=== PATIENT | male | born 2000 | race Caucasian/White ===

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

== ENCOUNTER 2024-01-29 15:37 | Emergency (ER) | payer BC ==
[~2024-01-29] VITALS: Ht 175.2 cm; Wt 68.0 kg
[2024-01-29] MEDS ORDERED: SODIUM CHLORIDE 0.9% 1,000 ML IV ONE (16:00)
[2024-01-29] MEDS ORDERED: Thiamine 200 MG/2 ML VIAL IV ONE (16:00)
[2024-01-29] MEDS ORDERED: Ondansetron Hydrochloride 4 MG/2 ML VIAL IV ONE (16:00)
[2024-01-29 16:08] LABS: BASO # 0.1 10*3/uL (0.0-0.1); BASO % 0.3 % (0.0-1.0); LYMPH # 2.2 10*3/uL (1.3-4.4); LYMPH % 13.6 % (27.0-41.0); MEAN CELL VOLUME 88.3 fl (80.0-94.0); MEAN CORPUSCULAR HGB 28.6 pg (27.0-31.0); MEAN CORPUSCULAR HGB CONC 32.4 g/dl (33.0-37.0); MEAN PLATELET VOLUME 8.4 fl (9.6-12.3); MONO # 0.6 10*3/uL (0.1-1.0); MONO % 3.5 % (3.0-9.0); NEUT # 13.1 10*3/uL (2.3-7.9); NEUT % 82.2 % (47.0-73.0); PLATELET COUNT AUTOMATED 416 10*3/uL (130-400); RED BLOOD COUNT 5.66 10*6/uL (4.50-5.90); WHITE BLOOD COUNT 15.9 10*3/uL (4.8-10.8)
[2024-01-29 16:34] LABS: ALKALINE PHOSPHATASE 94 U/L (46-116); BUN 12 mg/dl (9-23); CHLORIDE 104 mmol/L (98-107); LIPASE 33 U/L (12-53); POTASSIUM 4.3 mmol/L (3.4-5.1); SGPT/ALT 23 U/L (5-49); TOTAL PROTEIN 8.9 gm/dL (6.0-8.0)
[2024-01-29] MEDS ORDERED: Ondansetron4 MG PO (17:58)
== END 2024-01-29 18:02 | disposition home or self-care (01) ==
LOC: ED 15:37
PROVIDERS: Nurse Practitioner Family
DX: R11.2 Nausea with vomiting, unspecified (principal)